=== PATIENT | female | born 1975 | race Caucasian/White ===

== ENCOUNTER 2025-07-22 19:34 | Emergency (ER) | payer MEDICAID ==
[~2025-07-22] VITALS: Ht 156.2 cm; Wt 75.0 kg
[2025-07-22 19:41] VITALS: TEMP 98.5
[2025-07-22] MEDS: LIDOCAINE 5% TRANSDERMAL PATCH TD ONE (22:54)
[2025-07-22] MEDS: ACETAMINOPHEN 500 MG TABLET PO ONE (22:54)
[2025-07-22] MEDS: IBUPROFEN 400 MG TABLET PO ONE (22:54)
[2025-07-22] MEDS ORDERED: METH-812 PO (23:10)
[2025-07-23 00:18] VITALS: BP 118/66; PULSE 65; RESP 18; O2SAT 99
== END 2025-07-23 00:20 | disposition home or self-care (01) ==
LOC: EMS 19:34
DX: M54.2 Cervicalgia (principal); V89.2XXA Person injured in unspecified motor-vehicle accident, traffic, initial encounter; Y93.89 Activity, other specified; Y92.410 Unspecified street and highway as the place of occurrence of the external cause; Y99.8 Other external cause status
CPT/HCPCS: 72125; 99284; Z7502; Z7610